=== PATIENT | female | born 1975 | race Hispanic/Latino ===

== ENCOUNTER → 2021-12-17 | Outpatient (CLI) | payer OTHER ==
[~2021-12-17] MED LIST: ALBUMIN (HUMAN) 25% 100 ML IV SCH; MIDO5TAB4 PO
[2021-12-17 13:47] LABS: HEMATOCRIT 28.3 % (36-48); MEAN CORPUSCULAR HEMOGLOBIN 32.4 pg (27.0-33.0); MEAN CORPUSCULAR HGB CONC 32.5 g/dL (32.0-36.0); MEAN CORPUSCULAR VOLUME 99.6 fL (79-99); PLATELET COUNT (AUTO) 162 K/uL (130-400); RED BLOOD CELL COUNT(AUTO) 2.84 MIL/uL (4.00-5.50); RED CELL DISTRIBUTION WIDTH 15.2 % (11.0-15.5); WHITE BLOOD COUNT (AUTO) 8.1 K/uL (4.8-10.8)
[2021-12-17 13:58] LABS: INR 1.36 (0.85-1.15); PROTHROMBIN TIME 14.6 SEC (9.6-11.6)
[2021-12-17 13:59] LABS: PARTIAL THROMBOPLASTIN TIME 34.1 SEC (26.3-35.5)
[2021-12-17 14:00] LABS: CREATININE 0.8 mg/dL (0.5-1.5); POTASSIUM 3.7 mmol/L (3.5-5.1); TOTAL PROTEIN, SERUM 7.8 g/dL (6.0-8.3)
[2021-12-17 14:56] LABS: BAND NEUTROPHILS % (MANUAL) 1 % (0-2); LYMPHOCYTES % (MANUAL) 12 % (22-44); MAN.DIFF COMMENT-IMPRESSION MANUAL DIFFERENTIAL; REACTIVE LYMPHOCYTES 5 % (0-0); SEGMENTED NEUTROPHILS % 82 % (40-70)
== END | disposition home or self-care (01) ==
LOC: RAH 13:20
PROVIDERS: ATTEND Internal Medicine Gastroenterology
DX: R18.8 Other ascites (principal); I60.4 Nontraumatic subarachnoid hemorrhage from basilar artery
CPT/HCPCS: 76705; 80053; 85025; 85610; 85730; P9046

== ENCOUNTER 2022-08-23 15:49 | Inpatient (IN) | payer OTHER ==
[~2022-08-23] VITALS: Ht 157.5 cm; Wt 68.9 kg
[~2022-08-23 15:49] MED LIST changes: -ALBUMIN (HUMAN) 25% 100 ML IV SCH; +FURO20TA4 PO; -MIDO5TAB4 PO; +Midodrine Hcl PO
[2022-08-23 16:45] LABS: BASOPHILS % (AUTO) 0.3 % (0.0-5.0); MEAN CORPUSCULAR HEMOGLOBIN 33.5 pg (27.0-33.0); MEAN CORPUSCULAR HGB CONC 36.5 g/dL (32.0-36.0); MEAN CORPUSCULAR VOLUME 91.6 fL (79-99); PLATELET COUNT (AUTO) 112 K/uL (130-400); RED BLOOD CELL COUNT(AUTO) 2.27 MIL/uL (4.00-5.50); RED CELL DISTRIBUTION WIDTH 13.7 % (11.0-15.5); WHITE BLOOD COUNT (AUTO) 14.8 K/uL (4.8-10.8)
[2022-08-23 16:49] LABS: CREATININE 0.5 mg/dL (0.5-1.5); POTASSIUM 3.4 mmol/L (3.5-5.1)
[2022-08-23 16:50] LABS: HEMATOCRIT 20.8 % (36-48)
[2022-08-23 16:53] LABS: TOTAL PROTEIN, SERUM 6.7 g/dL (6.0-8.3)
[2022-08-23] MEDS ORDERED: PANTOPRAZOLE 40 MG/VIAL IVP ONE (17:00)
[2022-08-23] MEDS ORDERED: 0.9%NACL 1000ML 1,000 ML IV ONE ×2 (17:00→19:30)
[2022-08-23] MEDS ORDERED: CEFTRIAXONE 1G VIAL IVPB ONE (17:00)
[2022-08-23] MEDS ORDERED: IOHEXOL-350 75 ML VIAL IV ONE (17:13)
[2022-08-23 17:21] LABS: APPEARANCE,URINE CLEAR (CLEAR); BILIRUBIN,URINE NEGATIVE (NEGATIVE); COLOR,URINE LIGHT-YELLOW (YELLOW); GLUCOSE, URINE (UA) NEGATIVE (NEGATIVE); KETONES,URINE 5 mg/dL (NEGATIVE); LEUKOCYTE ESTERASE ,URINE NEGATIVE Leu/uL (NEGATIVE); NITRATE,URINE NEGATIVE (NEGATIVE); OCCULT BLOOD,URINE SMALL (NEGATIVE); PROTEIN,URINE NEGATIVE (NEGATIVE); UROBILINOGEN,URINE 0.2 mg/dL (0.2-1.0)
[2022-08-23 17:25] LABS: BACTERIA,URINE RARE /HPF (None Seen); RBC,URINE 0-1 /HPF (0-1)
[2022-08-23 17:26] LABS: SQUAMOUS EPITHELIAL CELL,UR FEW /HPF (0-2)
[2022-08-23 17:27] LABS: AMPHET/METH SCREEN,URINE NEGATIVE (NEGATIVE); BARBITURATE SCREEN, URINE NEGATIVE (NEGATIVE); BENZODIAZEPINES SCREEN,URINE NEGATIVE (NEGATIVE); CANNABINOID SCREEN,URINE NEGATIVE (NEGATIVE); COCAINE SCREEN,URINE NEGATIVE (NEGATIVE); OPIATE SCREEN,URINE NEGATIVE (NEGATIVE); PHENCYCLIDINE SCREEN,URINE NEGATIVE (NEGATIVE)
[2022-08-23] MEDS ORDERED: LORAZEPAM 2 MG/ML 1 ML VIAL IVP ONE (17:30)
[2022-08-23 18:04] LABS: AMMONIA 64 umol/L (11-32)
[2022-08-23] MEDS ORDERED: ZIPRASIDONE MESYLATE 20 MG/VIAL IM SCH (19:30)
[2022-08-23] MEDS ORDERED: ONDANSETRON 4MG INJ ONE (19:32)
[2022-08-23] MEDS ORDERED: ROCURONIUM BROMIDE 10MG/1ML 5ML VL ONE (19:34)
[2022-08-23] MEDS ORDERED: ETOMIDATE 20MG VIAL ONE (19:34)
[2022-08-23] MEDS ORDERED: FENTANYL 2500MCG+NS 250ML 250 ML IV ONE (19:38)
[2022-08-23] MEDS: NOREPINEPHRIN 4MG/NS 250ML 250 ML IV SCH (19:40)
[2022-08-23] MEDS: ETOMIDATE 20MG VIAL IVP SCH (19:40)
[2022-08-23] MEDS: FENTANYL 2500MCG+NS 250ML 250 ML IV PRN (19:52)
[2022-08-23] MEDS ORDERED: FENTANYL CITRATE PF 50 MCG/1 ML 2ML VIAL IVP PRN (20:00)
[2022-08-23] MEDS ORDERED: ACETAMINOPHEN 325 MG TAB PO PRN (20:00)
[2022-08-23] MEDS ORDERED: 0.9%NACL 1000ML 1,000 ML IV SCH (20:00)
[2022-08-23] MEDS ORDERED: MIDAZOLAM 100MG-0.9% NS 100ML 50 ML IV PRN (20:00)
[2022-08-23] MEDS ORDERED: NOREPINEPHRIN 4MG/NS 250ML 250 ML IV PRN (20:00)
[2022-08-23] MEDS: ARTIFICAL TEARS SOL 15 ML OU SCH (20:00)
[2022-08-23 20:19] LABS: HEMATOCRIT 19.8 % (36-48)
[2022-08-23 20:22] LABS: INR 1.35 (0.85-1.15); PROTHROMBIN TIME 14.5 SEC (9.6-11.6)
[2022-08-23 20:23] LABS: PARTIAL THROMBOPLASTIN TIME 31.6 SEC (26.3-35.5)
[2022-08-23] MEDS ORDERED: M.V.I. IV [ADULT] 10 ML in 0.9%NACL 1000ML 1,000 ML IV SCH (20:30)
[2022-08-23] MEDS ORDERED: PHARMACY COMMUNICATION MISC SCH (20:30)
[2022-08-23] MEDS ORDERED: CALCIUM GLUC 1GM/10ML VIAL IVPB SCH (20:30)
[2022-08-23] MEDS: PANTOPRAZOLE 40MG INJ 80 MG in 0.9%NACL 100ML 100 ML IV SCH (20:51)
[2022-08-23] MEDS: OCTREOTIDE ACETATE 1,250 MCG in 0.9% NACL 250ML 250 ML IV SCH (20:52)
[2022-08-23] MEDS: PROPOFOL 1000 MG/100 ML 100 ML IV SCH (21:07)
[2022-08-23 21:13] LABS: AMPHET/METH SCREEN,URINE NEGATIVE (NEGATIVE); BARBITURATE SCREEN, URINE NEGATIVE (NEGATIVE); BENZODIAZEPINES SCREEN,URINE NEGATIVE (NEGATIVE); CANNABINOID SCREEN,URINE NEGATIVE (NEGATIVE); COCAINE SCREEN,URINE NEGATIVE (NEGATIVE); OPIATE SCREEN,URINE NEGATIVE (NEGATIVE); PHENCYCLIDINE SCREEN,URINE NEGATIVE (NEGATIVE)
[2022-08-23 21:20] LABS: ABG BASE EXCESS -11.3 mmol/L (-2.0-3.0); ABG HCO3 14.5 mmol/L (21.0-28.0); ABG OXYGEN SATURATION 98.9 % (95.0-99.0); ABG PCO2 32 mmHg (32-45)
[2022-08-23 22:56] VITALS: BP 87/50
[2022-08-23 23:00] VITALS: BP 90/52
[2022-08-23 23:15] VITALS: BP 94/53
[2022-08-23 23:30] VITALS: BP 94/55
[2022-08-23 23:45] VITALS: BP 93/54
[2022-08-23 23:56] LABS: ALBUMIN 2.3 g/dL (3.5-5.0); CREATININE 0.5 mg/dL (0.5-1.5); PHOSPHORUS 3.7 mg/dL (2.5-4.9); POTASSIUM 3.2 mmol/L (3.5-5.1); TOTAL PROTEIN, SERUM 5.2 g/dL (6.0-8.3)
[2022-08-24] VITALS (110 sets, daily range): BP systolic 83–126; BP diastolic 45–80
[2022-08-24] MEDS ORDERED: SODIUM BICARB 50MEQ 50ML VIAL IV STA (01:23)
[2022-08-24] MEDS ORDERED: POTASSIUM CHLORIDE 10MEQ/100ML 10 MEQ/100 ML ML IV ONE ×2 (01:30→04:30)
[2022-08-24] MEDS ORDERED: PHYTONADIONE 10 MG in 0.9%NACL 50ML 50 ML IVPB ONE (01:30)
[2022-08-24] MEDS: SODIUM BICARB 8.4% 50ML SYRING 150 MEQ in DEXTROSE 5%-WATER 1,000 ML IVP SCH ×2 (01:30→12:53)
[2022-08-24] MEDS ORDERED: CALCIUM GLUC 1GM/10ML VIAL IVPB SCH ×2 (01:30→04:30)
[2022-08-24 01:54] LABS: BASOPHILS % (AUTO) 0.1 % (0.0-5.0); HEMATOCRIT 22.5 % (36-48); LYMPHOCYTES % (AUTO) 8.5 % (21.0-51.0); MEAN CORPUSCULAR HEMOGLOBIN 32.9 pg (27.0-33.0); MEAN CORPUSCULAR HGB CONC 36.4 g/dL (32.0-36.0); MEAN CORPUSCULAR VOLUME 90.4 fL (79-99); MONOCYTES % (AUTO) 5.5 % (3.0-13.0); NEUTROPHILS % (AUTO) 85.3 % (40.0-77.0); PLATELET COUNT (AUTO) 59 K/uL (130-400); RED BLOOD CELL COUNT(AUTO) 2.49 MIL/uL (4.00-5.50); RED CELL DISTRIBUTION WIDTH 14.4 % (11.0-15.5); WHITE BLOOD COUNT (AUTO) 15.5 K/uL (4.8-10.8)
[2022-08-24] MEDS ORDERED: POTASSIUM CHLORIDE 10MEQ/100ML 100 ML IV SCH (02:00)
[2022-08-24 02:04] LABS: INR 1.26 (0.85-1.15); PROTHROMBIN TIME 13.6 SEC (9.6-11.6)
[2022-08-24 02:05] LABS: PARTIAL THROMBOPLASTIN TIME 33.9 SEC (26.3-35.5)
[2022-08-24 02:09] LABS: CREATININE 0.5 mg/dL (0.5-1.5); MAGNESIUM 1.6 mg/dL (1.80-2.40); PHOSPHORUS 3.1 mg/dL (2.5-4.9); POTASSIUM 3.2 mmol/L (3.5-5.1)
[2022-08-24] MEDS ORDERED: PHYTONADIONE 10 MG/1 ML AMP ONE (02:36)
[2022-08-24 03:32] LABS: ABG BASE EXCESS -2.8 mmol/L (-2.0-3.0); ABG HCO3 19.5 mmol/L (21.0-28.0); ABG OXYGEN SATURATION 99.4 % (95.0-99.0); ABG PCO2 28 mmHg (32-45)
[2022-08-24] MEDS: ARTIFICAL TEARS SOL 15 ML OU SCH ×4 (04:14→17:38)
[2022-08-24] MEDS ORDERED: DESMOPRESSIN IJ ONE (04:30)
[2022-08-24] MEDS ORDERED: 0.9%NACL 50ML IV SCH (04:30)
[2022-08-24] MEDS ORDERED: ZOSYN 3.375GM +NS 50ML IVPB SCH (04:30)
[2022-08-24] MEDS ORDERED: [UNRECOGNIZED DRUG - OTHER] IJ ONE (04:30)
[2022-08-24] MEDS ORDERED: MAGNESIUM 2GM PREMIX 50ML 50 ML IV SCH (04:30)
[2022-08-24] MEDS ORDERED: VANCOMYCIN PROTOCOL PER PHARMACY IV SCH (04:30)
[2022-08-24] MEDS ORDERED: VANCOMYCIN 1G/250ML KIT 250 ML IV ONE (04:30)
[2022-08-24] MEDS ORDERED: PANTOPRAZOLE 40 MG/VIAL ONE (04:46)
[2022-08-24] MEDS: PROPOFOL 1000 MG/100 ML 100 ML IV SCH ×4 (04:59→18:27)
[2022-08-24] MEDS: PANTOPRAZOLE 40MG INJ 80 MG in 0.9%NACL 100ML 100 ML IV SCH ×2 (05:01→14:12)
[2022-08-24] MEDS: INSULIN HUMULIN R 100 UNIT/ML 3ML SQ SCH ×4 (06:00→17:37)
[2022-08-24] MEDS: FENTANYL 2500MCG+NS 250ML 250 ML IV PRN ×2 (06:08→19:45)
[2022-08-24 06:56] LABS: HEMATOCRIT 21.7 % (36-48)
[2022-08-24 07:12] LABS: ALBUMIN 1.9 g/dL (3.5-5.0); BILIRUBIN,DIRECT 1.1 mg/dL (0.0-0.3); CREATININE 0.4 mg/dL (0.5-1.5); POTASSIUM 3.4 mmol/L (3.5-5.1); TOTAL PROTEIN, SERUM 4.2 g/dL (6.0-8.3)
[2022-08-24 07:28] LABS: ABG BASE EXCESS -0.3 mmol/L (-2.0-3.0); ABG HCO3 22.8 mmol/L (21.0-28.0); ABG OXYGEN SATURATION 98.6 % (95.0-99.0); ABG PCO2 33 mmHg (32-45)
[2022-08-24] MEDS ORDERED: [UNRECOGNIZED DRUG - OTHER] IJ SCH (08:00)
[2022-08-24] MEDS ORDERED: DESMOPRESSIN IJ SCH (08:00)
[2022-08-24] MEDS ORDERED: COMPOUND IV REFRIGERATED 1 EACH IVSOLN MISC PRN (08:30)
[2022-08-24 08:49] LABS: MAGNESIUM 1.4 mg/dL (1.80-2.40); POTASSIUM 3.4 mmol/L (3.5-5.1)
[2022-08-24] MEDS ORDERED: COMPOUND IV MISC 1 EACH IVSOLN MISC PRN (09:00)
[2022-08-24] MEDS ORDERED: CEFTRIAXONE 1G VIAL IV SCH (09:00)
[2022-08-24] MEDS: MEROPENEM 1 GM VIAL IVPB SCH ×2 (09:06→21:15)
[2022-08-24] MEDS: ALBUMIN (HUMAN) 25% 100 ML IV SCH ×4 (09:07→21:15)
[2022-08-24] MEDS: FOLIC ACID 5 MG/ML VIAL IV SCH (09:07)
[2022-08-24] MEDS: THIAMINE HCL 100 MG TABLET PO SCH (09:09)
[2022-08-24] MEDS: FOLIC ACID 1 MG, THIAMINE HCL 100 MG in 0.9%NACL 1000ML 1,000 ML IV SCH (09:09)
[2022-08-24] MEDS ORDERED: ERYTHROMYCIN LACTOBIONATE 250 MG in 0.9%NACL 100ML 100 ML IV SCH (09:31)
[2022-08-24] MEDS: EPOETIN ALFA-EPBX (NON-ESRD) 10,000 UNIT/ML VIAL SQ SCH (09:34)
[2022-08-24] MEDS: IRON SUCROSE COMPLEX 300 MG in 0.9% NACL 250ML 250 ML IV SCH (09:35)
[2022-08-24] MEDS ORDERED: PHARMACY COMMUNICATION MISC SCH (12:00)
[2022-08-24] MEDS ORDERED: SIMETHICONE 40 MG/0.6 ML ML PO SCH (12:00)
[2022-08-24] MEDS: POTASSIUM CHLORIDE 10MEQ/100ML 100 ML IV PRN ×4 (12:53→22:49)
[2022-08-24] MEDS: METRONIDAZOLE 500MG/100ML BAG 100 ML IVPB SCH ×2 (13:22→21:39)
[2022-08-24] MEDS ORDERED: OSELTAMIVIR PHOSPHATE 75 MG CAP NG ONE (15:00)
[2022-08-24] MEDS: OSELTAMIVIR PHOSPHATE 75 MG CAP PO SCH ×2 (15:18→21:19)
[2022-08-24 18:18] LABS: MAGNESIUM 2.1 mg/dL (1.80-2.40)
[2022-08-24] MEDS: ETOMIDATE 20MG VIAL IVP SCH (18:39)
[2022-08-24] MEDS: 0.9%NACL 10ML VIAL IV SCH (21:00)
[2022-08-24] MEDS: VANCOMYCIN 1G/250ML KIT 250 ML IV SCH (21:18)
[2022-08-24] MEDS: LACTULOSE 20 GM/30 ML UDCUP PO SCH (21:19)
[2022-08-25] VITALS (79 sets, daily range): BP systolic 86–144; BP diastolic 51–87
[2022-08-25] MEDS: ALBUMIN (HUMAN) 25% 100 ML IV SCH ×6 (00:13→20:33)
[2022-08-25] MEDS: ARTIFICAL TEARS SOL 15 ML OU SCH ×4 (00:14→17:27)
[2022-08-25] MEDS: SODIUM BICARB 8.4% 50ML SYRING 150 MEQ in DEXTROSE 5%-WATER 1,000 ML IVP SCH (00:14)
[2022-08-25] MEDS: PANTOPRAZOLE 40MG INJ 80 MG in 0.9%NACL 100ML 100 ML IV SCH ×3 (00:17→18:58)
[2022-08-25] MEDS: PROPOFOL 1000 MG/100 ML 100 ML IV SCH ×3 (00:56→21:43)
[2022-08-25] MEDS: NOREPINEPHRIN 4MG/NS 250ML 250 ML IV SCH (01:00)
[2022-08-25 03:09] LABS: ABG BASE EXCESS 6.7 mmol/L (-2.0-3.0); ABG HCO3 29.5 mmol/L (21.0-28.0); ABG OXYGEN SATURATION 96.2 % (95.0-99.0); ABG PCO2 36 mmHg (32-45)
[2022-08-25 04:09] LABS: BASOPHILS % (AUTO) 0.1 % (0.0-5.0); EOSINOPHILS % (AUTO) 0.1 % (0.0-8.0); LYMPHOCYTES % (AUTO) 7.8 % (21.0-51.0); MEAN CORPUSCULAR HGB CONC 36.2 g/dL (32.0-36.0); MEAN CORPUSCULAR VOLUME 91.1 fL (79-99); MONOCYTES % (AUTO) 5.5 % (3.0-13.0); NEUTROPHILS % (AUTO) 86.1 % (40.0-77.0); PLATELET COUNT (AUTO) 33 K/uL (130-400); RED BLOOD CELL COUNT(AUTO) 1.91 MIL/uL (4.00-5.50); RED CELL DISTRIBUTION WIDTH 15.4 % (11.0-15.5); WHITE BLOOD COUNT (AUTO) 9.1 K/uL (4.8-10.8)
[2022-08-25 04:16] LABS: HEMATOCRIT 17.4 % (36-48)
[2022-08-25 04:28] LABS: CREATININE 0.4 mg/dL (0.5-1.5)
[2022-08-25 04:42] LABS: POTASSIUM 2.6 mmol/L (3.5-5.1)
[2022-08-25] MEDS: POTASSIUM CHLORIDE 10MEQ/100ML 100 ML IV PRN ×2 (04:50→05:56)
[2022-08-25] MEDS ORDERED: MAGNESIUM 2GM PREMIX 50ML 50 ML IV PRN (05:30)
[2022-08-25] MEDS: INSULIN HUMULIN R 100 UNIT/ML 3ML SQ SCH ×4 (05:44→17:25)
[2022-08-25] MEDS: METRONIDAZOLE 500MG/100ML BAG 100 ML IVPB SCH ×3 (05:47→21:38)
[2022-08-25] MEDS: FENTANYL 2500MCG+NS 250ML 250 ML IV PRN (06:29)
[2022-08-25] MEDS: POTASSIUM CHLORIDE 20MEQ/100ML 100 ML IV PRN ×6 (07:40→15:28)
[2022-08-25] MEDS: EPOETIN ALFA-EPBX (NON-ESRD) 10,000 UNIT/ML VIAL SQ SCH (08:37)
[2022-08-25] MEDS: VANCOMYCIN 1G/250ML KIT 250 ML IV SCH ×2 (08:37→22:51)
[2022-08-25] MEDS: FOLIC ACID 5 MG/ML VIAL IV SCH (08:37)
[2022-08-25] MEDS: MEROPENEM 1 GM VIAL IVPB SCH ×2 (08:37→20:33)
[2022-08-25] MEDS: LACTULOSE 20 GM/30 ML UDCUP PO SCH ×2 (08:37→20:33)
[2022-08-25] MEDS: OSELTAMIVIR PHOSPHATE 75 MG CAP PO SCH ×2 (08:38→20:33)
[2022-08-25] MEDS: THIAMINE HCL 100 MG TABLET PO SCH (08:38)
[2022-08-25] MEDS: 0.9%NACL 10ML VIAL IV SCH ×2 (08:38→21:00)
[2022-08-25] MEDS: IRON SUCROSE COMPLEX 300 MG in 0.9% NACL 250ML 250 ML IV SCH (08:38)
[2022-08-25] MEDS: FOLIC ACID 1 MG, THIAMINE HCL 100 MG in 0.9%NACL 1000ML 1,000 ML IV SCH (09:25)
[2022-08-25 10:57] LABS: POTASSIUM 3.2 mmol/L (3.5-5.1)
[2022-08-25] MEDS ORDERED: FUROSEMIDE 20MG VIAL IV SCH (11:00)
[2022-08-25] MEDS: DEXMEDETOMIDINE 400MCG/NS100ML IV SCH ×2 (11:39→19:22)
[2022-08-25] MEDS: IPRATROPIUM 0.5 MG/2.5 ML INH IH SCH ×4 (14:30→23:07)
[2022-08-25] MEDS: ACETYLCYSTEINE 10% 100MG/ML 4ML VIAL IH SCH ×2 (14:30→23:07)
[2022-08-25 18:39] LABS: POTASSIUM 4.2 mmol/L (3.5-5.1)
[2022-08-25] MEDS: OCTREOTIDE ACETATE 1,250 MCG in 0.9% NACL 250ML 250 ML IV SCH (18:59)
[2022-08-25 20:59] LABS: ABG BASE EXCESS 1.8 mmol/L (-2.0-3.0); ABG OXYGEN SATURATION 80.8 % (95.0-99.0); ABG PCO2 39 mmHg (32-45)
[2022-08-25] MEDS: FUROSEMIDE 20MG VIAL IV SCH (22:50)
[2022-08-26] VITALS (46 sets, daily range): BP systolic 80–142; BP diastolic 46–84
[2022-08-26] MEDS: ALBUMIN (HUMAN) 25% 100 ML IV SCH ×2 (00:07→03:14)
[2022-08-26] MEDS: ARTIFICAL TEARS SOL 15 ML OU SCH ×5 (00:13→23:40)
[2022-08-26] MEDS: DEXMEDETOMIDINE 400MCG/NS100ML IV SCH ×3 (01:23→15:30)
[2022-08-26] MEDS: IPRATROPIUM 0.5 MG/2.5 ML INH IH SCH ×6 (02:34→21:35)
[2022-08-26] MEDS: PANTOPRAZOLE 40MG INJ 80 MG in 0.9%NACL 100ML 100 ML IV SCH ×2 (04:52→19:57)
[2022-08-26 05:03] LABS: BASOPHILS % (AUTO) 0.1 % (0.0-5.0); EOSINOPHILS % (AUTO) 0.4 % (0.0-8.0); LYMPHOCYTES % (AUTO) 9.1 % (21.0-51.0); MEAN CORPUSCULAR HGB CONC 34.9 g/dL (32.0-36.0); MEAN CORPUSCULAR VOLUME 94.5 fL (79-99); MONOCYTES % (AUTO) 3.9 % (3.0-13.0); NEUTROPHILS % (AUTO) 85.8 % (40.0-77.0); NUCLEATED RED BLOOD CELLS 0.4 % (0.0-0.19); PLATELET COUNT (AUTO) 32 K/uL (130-400); RED BLOOD CELL COUNT(AUTO) 1.82 MIL/uL (4.00-5.50); WHITE BLOOD COUNT (AUTO) 7.3 K/uL (4.8-10.8)
[2022-08-26 05:07] LABS: CREATININE 0.5 mg/dL (0.5-1.5); MAGNESIUM 1.7 mg/dL (1.80-2.40); POTASSIUM 3.3 mmol/L (3.5-5.1)
[2022-08-26 05:11] LABS: HEMATOCRIT 17.2 % (36-48)
[2022-08-26 05:17] LABS: INR 1.54 (0.85-1.15); PROTHROMBIN TIME 16.4 SEC (9.6-11.6)
[2022-08-26 05:19] LABS: PARTIAL THROMBOPLASTIN TIME 69.1 SEC (26.3-35.5)
[2022-08-26] MEDS: METRONIDAZOLE 500MG/100ML BAG 100 ML IVPB SCH ×3 (05:23→23:39)
[2022-08-26] MEDS: POTASSIUM CHLORIDE 20MEQ/100ML 100 ML IV PRN ×5 (05:27→19:57)
[2022-08-26] MEDS: INSULIN HUMULIN R 100 UNIT/ML 3ML SQ SCH ×5 (05:28→22:48)
[2022-08-26] MEDS: FUROSEMIDE 20MG VIAL IV SCH ×3 (05:44→21:47)
[2022-08-26] MEDS: ACETYLCYSTEINE 10% 100MG/ML 4ML VIAL IH SCH ×2 (07:02→19:19)
[2022-08-26] MEDS: EPOETIN ALFA-EPBX (NON-ESRD) 10,000 UNIT/ML VIAL SQ SCH (08:14)
[2022-08-26] MEDS: MEROPENEM 1 GM VIAL IVPB SCH ×2 (08:14→19:57)
[2022-08-26] MEDS: FOLIC ACID 5 MG/ML VIAL IV SCH (08:14)
[2022-08-26] MEDS: LACTULOSE 20 GM/30 ML UDCUP PO SCH ×2 (08:15→20:39)
[2022-08-26] MEDS: VANCOMYCIN 1G/250ML KIT 250 ML IV SCH ×2 (08:15→21:45)
[2022-08-26] MEDS: THIAMINE HCL 100 MG TABLET PO SCH (08:15)
[2022-08-26] MEDS: OSELTAMIVIR PHOSPHATE 75 MG CAP PO SCH ×2 (08:15→20:39)
[2022-08-26] MEDS: IRON SUCROSE COMPLEX 300 MG in 0.9% NACL 250ML 250 ML IV SCH ×2 (08:16→11:44)
[2022-08-26] MEDS: 0.9%NACL 10ML VIAL IV SCH ×2 (08:17→19:58)
[2022-08-26] MEDS: FOLIC ACID 1 MG, THIAMINE HCL 100 MG in 0.9%NACL 1000ML 1,000 ML IV SCH (09:41)
[2022-08-26] MEDS: PROPOFOL 1000 MG/100 ML 100 ML IV SCH ×2 (13:28→22:11)
[2022-08-27] VITALS (52 sets, daily range): BP systolic 89–164; BP diastolic 45–92
[2022-08-27] MEDS: DEXMEDETOMIDINE 400MCG/NS100ML IV SCH ×4 (02:43→20:43)
[2022-08-27] MEDS: IPRATROPIUM 0.5 MG/2.5 ML INH IH SCH ×3 (03:32→19:10)
[2022-08-27 04:29] LABS: CREATININE 0.6 mg/dL (0.5-1.5); POTASSIUM 4.3 mmol/L (3.5-5.1)
[2022-08-27] MEDS: PROPOFOL 1000 MG/100 ML 100 ML IV SCH ×2 (04:37→20:14)
[2022-08-27] MEDS: PANTOPRAZOLE 40MG INJ 80 MG in 0.9%NACL 100ML 100 ML IV SCH ×3 (04:41→22:59)
[2022-08-27] MEDS: METRONIDAZOLE 500MG/100ML BAG 100 ML IVPB SCH ×3 (05:40→21:51)
[2022-08-27] MEDS: FUROSEMIDE 20MG VIAL IV SCH ×3 (05:40→21:51)
[2022-08-27] MEDS: INSULIN HUMULIN R 100 UNIT/ML 3ML SQ SCH ×3 (05:52→18:00)
[2022-08-27] MEDS: ARTIFICAL TEARS SOL 15 ML OU SCH ×3 (05:53→20:07)
[2022-08-27] MEDS: ACETYLCYSTEINE 10% 100MG/ML 4ML VIAL IH SCH ×2 (06:47→19:10)
[2022-08-27] MEDS: LACTULOSE 20 GM/30 ML UDCUP PO SCH ×2 (08:42→20:16)
[2022-08-27] MEDS: THIAMINE HCL 100 MG/ML 2ML VIAL IVP SCH (08:42)
[2022-08-27] MEDS: OSELTAMIVIR PHOSPHATE 75 MG CAP PO SCH ×2 (08:42→20:16)
[2022-08-27] MEDS: MEROPENEM 1 GM VIAL IVPB SCH ×2 (08:42→20:15)
[2022-08-27] MEDS: 0.9%NACL 10ML VIAL IV SCH ×2 (08:44→20:16)
[2022-08-27] MEDS: VANCOMYCIN 1G/250ML KIT 250 ML IV SCH (09:00)
[2022-08-27] MEDS ORDERED: IPRATROPIUM 0.5 MG/2.5 ML INH IH ONE (10:37)
[2022-08-27] MEDS: EPOETIN ALFA-EPBX (NON-ESRD) 10,000 UNIT/ML VIAL SQ SCH (10:39)
[2022-08-27] MEDS: FOLIC ACID 5 MG/ML VIAL IV SCH (10:39)
[2022-08-27] MEDS ORDERED: MORPHINE 2 MG SYG ONE (13:16)
[2022-08-27] MEDS ORDERED: MORPHINE 2 MG SYG IVP SCH (13:30)
[2022-08-27 17:04] LABS: BODY FLUID RBC 695 /cu. mm.; BODY FLUID WBC 60 /cu. mm.
[2022-08-27 17:14] LABS: APPEARANCE BODY FLUID CLEAR (CLEAR); COLOR,BODY FLUID YELLOW (LT YELLOW); SPECIMENTYPE,BODY FLUID PLEURAL; TOTAL VOLUME,BODY FLUID 24 mL
[2022-08-27 18:59] LABS: BF LYMPHOCYTE 24 %; BF MONOCYTE 14 %; BF OTHER CELLS 8
[2022-08-27] MEDS: OCTREOTIDE ACETATE 1,250 MCG in 0.9% NACL 250ML 250 ML IV SCH (20:26)
[2022-08-28] VITALS (37 sets, daily range): BP systolic 89–157; BP diastolic 43–91
[2022-08-28] MEDS: ARTIFICAL TEARS SOL 15 ML OU SCH ×5 (00:32→23:32)
[2022-08-28] MEDS: IPRATROPIUM 0.5 MG/2.5 ML INH IH SCH ×4 (00:37→19:55)
[2022-08-28] MEDS: DEXMEDETOMIDINE 400MCG/NS100ML IV SCH ×4 (02:41→22:25)
[2022-08-28] MEDS: PROPOFOL 1000 MG/100 ML 100 ML IV SCH ×3 (02:41→20:15)
[2022-08-28] MEDS: INSULIN HUMULIN R 100 UNIT/ML 3ML SQ SCH ×4 (06:00→18:00)
[2022-08-28] MEDS: ACETYLCYSTEINE 10% 100MG/ML 4ML VIAL IH SCH ×2 (06:47→19:55)
[2022-08-28 07:27] LABS: ALBUMIN 4.4 g/dL (3.5-5.0); CREATININE 0.6 mg/dL (0.5-1.5); TOTAL PROTEIN, SERUM 6.1 g/dL (6.0-8.3)
[2022-08-28] MEDS: METRONIDAZOLE 500MG/100ML BAG 100 ML IVPB SCH ×3 (07:27→21:08)
[2022-08-28] MEDS: FUROSEMIDE 20MG VIAL IV SCH ×3 (07:27→21:09)
[2022-08-28 07:32] LABS: POTASSIUM 2.6 mmol/L (3.5-5.1)
[2022-08-28] MEDS: POTASSIUM CHLORIDE 20MEQ/100ML 100 ML IV PRN ×4 (07:35→15:31)
[2022-08-28] MEDS: MEROPENEM 1 GM VIAL IVPB SCH ×2 (09:02→21:09)
[2022-08-28] MEDS: LACTULOSE 20 GM/30 ML UDCUP PO SCH ×2 (09:09→21:08)
[2022-08-28] MEDS: THIAMINE HCL 100 MG/ML 2ML VIAL IVP SCH (09:09)
[2022-08-28] MEDS: OSELTAMIVIR PHOSPHATE 75 MG CAP PO SCH ×2 (09:09→21:09)
[2022-08-28] MEDS: IRON SUCROSE COMPLEX 300 MG in 0.9% NACL 250ML 250 ML IV SCH (09:09)
[2022-08-28] MEDS: EPOETIN ALFA-EPBX (NON-ESRD) 10,000 UNIT/ML VIAL SQ SCH (09:12)
[2022-08-28] MEDS: 0.9%NACL 10ML VIAL IV SCH ×2 (10:09→21:07)
[2022-08-28] MEDS: FOLIC ACID 5 MG/ML VIAL IV SCH (10:54)
[2022-08-28] MEDS: VANCOMYCIN 1G/250ML KIT 250 ML IV SCH (21:08)
[2022-08-29] VITALS (40 sets, daily range): BP systolic 96–150; BP diastolic 44–90
[2022-08-29] MEDS: IPRATROPIUM 0.5 MG/2.5 ML INH IH SCH ×4 (00:11→20:27)
[2022-08-29] MEDS: PROPOFOL 1000 MG/100 ML 100 ML IV SCH (03:58)
[2022-08-29] MEDS: DEXMEDETOMIDINE 400MCG/NS100ML IV SCH ×2 (03:58→11:37)
[2022-08-29 04:37] LABS: HEMATOCRIT 24.7 % (36-48)
[2022-08-29] MEDS: METRONIDAZOLE 500MG/100ML BAG 100 ML IVPB SCH ×3 (05:14→20:48)
[2022-08-29] MEDS: ARTIFICAL TEARS SOL 15 ML OU SCH ×3 (05:15→17:52)
[2022-08-29] MEDS: FUROSEMIDE 20MG VIAL IV SCH ×3 (05:15→20:35)
[2022-08-29] MEDS: INSULIN HUMULIN R 100 UNIT/ML 3ML SQ SCH ×4 (06:00→17:52)
[2022-08-29 07:02] LABS: HEMATOCRIT 25.8 % (36-48); MEAN CORPUSCULAR HEMOGLOBIN 34.3 pg (27.0-33.0); MEAN CORPUSCULAR HGB CONC 33.3 g/dL (32.0-36.0); MEAN CORPUSCULAR VOLUME 102.8 fL (79-99); NUCLEATED RED BLOOD CELLS 1.2 % (0.0-0.19); RED BLOOD CELL COUNT(AUTO) 2.51 MIL/uL (4.00-5.50); RED CELL DISTRIBUTION WIDTH 21.8 % (11.0-15.5); WHITE BLOOD COUNT (AUTO) 7.5 K/uL (4.8-10.8)
[2022-08-29] MEDS: ACETYLCYSTEINE 10% 100MG/ML 4ML VIAL IH SCH ×2 (07:04→20:27)
[2022-08-29] MEDS ORDERED: PHARMACY COMMUNICATION MISC PRN (09:00)
[2022-08-29] MEDS: MEROPENEM 1 GM VIAL IVPB SCH ×2 (09:09→20:29)
[2022-08-29] MEDS: FOLIC ACID 5 MG/ML VIAL IV SCH (09:09)
[2022-08-29] MEDS: VANCOMYCIN 1G/250ML KIT 250 ML IV SCH ×2 (09:10→20:34)
[2022-08-29] MEDS: THIAMINE HCL 100 MG/ML 2ML VIAL IVP SCH (09:12)
[2022-08-29] MEDS: OSELTAMIVIR PHOSPHATE 75 MG CAP PO SCH (09:12)
[2022-08-29] MEDS: LACTULOSE 20 GM/30 ML UDCUP PO SCH ×2 (09:12→20:34)
[2022-08-29] MEDS: EPOETIN ALFA-EPBX (NON-ESRD) 10,000 UNIT/ML VIAL SQ SCH (09:12)
[2022-08-29] MEDS: IRON SUCROSE COMPLEX 300 MG in 0.9% NACL 250ML 250 ML IV SCH (09:13)
[2022-08-29] MEDS: 0.9%NACL 10ML VIAL IV SCH ×2 (09:14→20:39)
[2022-08-29 09:45] LABS: ALBUMIN 4.4 g/dL (3.5-5.0); CREATININE 0.5 mg/dL (0.5-1.5); MAGNESIUM 1.3 mg/dL (1.80-2.40); PHOSPHORUS 1.7 mg/dL (2.5-4.9); TOTAL PROTEIN, SERUM 6.2 g/dL (6.0-8.3)
[2022-08-29 09:47] LABS: POTASSIUM 2.9 mmol/L (3.5-5.1)
[2022-08-29] MEDS: LORAZEPAM 2 MG/ML 1 ML VIAL IVP PRN ×2 (09:56→20:34)
[2022-08-29] MEDS: POTASSIUM CHLORIDE 20MEQ/100ML 100 ML IV PRN ×2 (14:00→20:30)
[2022-08-29] MEDS: CHLORDIAZEPOXIDE HCL 25 MG CAP PO PRN (23:34)
[2022-08-30] VITALS (45 sets, daily range): BP systolic 86–168; BP diastolic 45–99
[2022-08-30] MEDS: ARTIFICAL TEARS SOL 15 ML OU SCH ×4 (01:09→18:07)
[2022-08-30] MEDS: LORAZEPAM 2 MG/ML 1 ML VIAL IVP PRN ×3 (01:14→18:20)
[2022-08-30 04:03] LABS: HEMATOCRIT 27.1 % (36-48); MEAN CORPUSCULAR HEMOGLOBIN 34.6 pg (27.0-33.0); MEAN CORPUSCULAR HGB CONC 32.8 g/dL (32.0-36.0); MEAN CORPUSCULAR VOLUME 105.4 fL (79-99); RED BLOOD CELL COUNT(AUTO) 2.57 MIL/uL (4.00-5.50); RED CELL DISTRIBUTION WIDTH 23.9 % (11.0-15.5); WHITE BLOOD COUNT (AUTO) 9.9 K/uL (4.8-10.8)
[2022-08-30 04:17] LABS: CREATININE 0.6 mg/dL (0.5-1.5); MAGNESIUM 1.4 mg/dL (1.80-2.40); PHOSPHORUS 1.5 mg/dL (2.5-4.9); POTASSIUM 3.9 mmol/L (3.5-5.1)
[2022-08-30] MEDS: INSULIN HUMULIN R 100 UNIT/ML 3ML SQ SCH ×4 (06:00→18:00)
[2022-08-30] MEDS: METRONIDAZOLE 500MG/100ML BAG 100 ML IVPB SCH ×3 (06:12→21:08)
[2022-08-30] MEDS: FUROSEMIDE 20MG VIAL IV SCH ×3 (06:12→21:09)
[2022-08-30] MEDS: ACETYLCYSTEINE 10% 100MG/ML 4ML VIAL IH SCH (06:44)
[2022-08-30] MEDS: IPRATROPIUM 0.5 MG/2.5 ML INH IH SCH ×4 (06:44→23:30)
[2022-08-30] MEDS: DEXMEDETOMIDINE 400MCG/NS100ML IV SCH ×2 (07:54→21:08)
[2022-08-30] MEDS: LACTULOSE 20 GM/30 ML UDCUP PO SCH ×2 (09:00→21:08)
[2022-08-30] MEDS: MEROPENEM 1 GM VIAL IVPB SCH ×2 (09:04→21:09)
[2022-08-30] MEDS: 0.9%NACL 10ML VIAL IV SCH ×2 (09:05→21:10)
[2022-08-30] MEDS: IRON SUCROSE COMPLEX 300 MG in 0.9% NACL 250ML 250 ML IV SCH (09:05)
[2022-08-30] MEDS: THIAMINE HCL 100 MG/ML 2ML VIAL IVP SCH (09:05)
[2022-08-30] MEDS: EPOETIN ALFA-EPBX (NON-ESRD) 10,000 UNIT/ML VIAL SQ SCH (09:06)
[2022-08-30] MEDS: FOLIC ACID 5 MG/ML VIAL IV SCH (09:11)
[2022-08-30] MEDS: CHLORDIAZEPOXIDE HCL 25 MG CAP PO PRN (10:05)
[2022-08-30] MEDS: VANCOMYCIN 1G/250ML KIT 250 ML IV SCH ×2 (10:23→21:09)
[2022-08-30] MEDS: MAGNESIUM 2GM PREMIX 50ML 50 ML IV PRN (12:22)
[2022-08-31] VITALS (49 sets, daily range): BP systolic 73–120; BP diastolic 40–79
[2022-08-31] MEDS: ARTIFICAL TEARS SOL 15 ML OU SCH ×5 (00:30→23:48)
[2022-08-31 05:19] LABS: HEMATOCRIT 28.8 % (36-48); MEAN CORPUSCULAR HEMOGLOBIN 33.9 pg (27.0-33.0); MEAN CORPUSCULAR HGB CONC 31.9 g/dL (32.0-36.0); MEAN CORPUSCULAR VOLUME 106.3 fL (79-99); NUCLEATED RED BLOOD CELLS 0.9 % (0.0-0.19); PLATELET COUNT (AUTO) 61 K/uL (130-400); RED BLOOD CELL COUNT(AUTO) 2.71 MIL/uL (4.00-5.50); RED CELL DISTRIBUTION WIDTH 25.3 % (11.0-15.5); WHITE BLOOD COUNT (AUTO) 5.6 K/uL (4.8-10.8)
[2022-08-31 05:29] LABS: CREATININE 0.7 mg/dL (0.5-1.5); MAGNESIUM 2.4 mg/dL (1.80-2.40)
[2022-08-31] MEDS: METRONIDAZOLE 500MG/100ML BAG 100 ML IVPB SCH ×3 (05:38→22:13)
[2022-08-31] MEDS: POTASSIUM CHLORIDE 20MEQ/100ML 100 ML IV PRN ×4 (05:38→21:23)
[2022-08-31] MEDS: FUROSEMIDE 20MG VIAL IV SCH ×3 (05:39→22:14)
[2022-08-31] MEDS: DEXMEDETOMIDINE 400MCG/NS100ML IV SCH (05:41)
[2022-08-31] MEDS: INSULIN HUMULIN R 100 UNIT/ML 3ML SQ SCH ×5 (05:51→23:47)
[2022-08-31 06:00] LABS: PLATELET MORPHOLOGY COMMENT DECREASED
[2022-08-31] MEDS: IPRATROPIUM 0.5 MG/2.5 ML INH IH SCH ×2 (07:05→11:14)
[2022-08-31] MEDS: EPOETIN ALFA-EPBX (NON-ESRD) 10,000 UNIT/ML VIAL SQ SCH (08:12)
[2022-08-31] MEDS: LACTULOSE 20 GM/30 ML UDCUP PO SCH ×2 (08:13→20:28)
[2022-08-31] MEDS: THIAMINE HCL 100 MG/ML 2ML VIAL IVP SCH (08:15)
[2022-08-31] MEDS: MEROPENEM 1 GM VIAL IVPB SCH ×2 (08:15→20:30)
[2022-08-31] MEDS: VANCOMYCIN 1G/250ML KIT 250 ML IV SCH (08:15)
[2022-08-31] MEDS: 0.9%NACL 10ML VIAL IV SCH ×2 (08:15→20:37)
[2022-08-31] MEDS: FOLIC ACID 5 MG/ML VIAL IV SCH (08:29)
[2022-08-31] MEDS: IRON SUCROSE COMPLEX 300 MG in 0.9% NACL 250ML 250 ML IV SCH (10:28)
[2022-08-31] MEDS: CHLORDIAZEPOXIDE HCL 25 MG CAP PO SCH ×2 (18:00→23:47)
[2022-08-31] MEDS: PANTOPRAZOLE 40 MG/VIAL IVP SCH (20:29)
[2022-09-01] VITALS (20 sets, daily range): BP systolic 86–125; BP diastolic 46–75
[2022-09-01] MEDS: IPRATROPIUM 0.5 MG/2.5 ML INH IH SCH ×5 (00:53→20:02)
[2022-09-01 02:07] LABS: MAGNESIUM 1.6 mg/dL (1.80-2.40)
[2022-09-01] MEDS: MAGNESIUM 2GM PREMIX 50ML 50 ML IV PRN (02:25)
[2022-09-01] MEDS: POTASSIUM CHLORIDE 20MEQ/100ML 100 ML IV PRN (02:26)
[2022-09-01] MEDS ORDERED: 1/2NS+20MEQ KCL/1000ML 1,000 ML IV SCH (03:30)
[2022-09-01] MEDS ORDERED: POTASSIUM CHLORIDE 10% ELIXIR 20 MEQ/15 ML UDCUP PO PRN (03:30)
[2022-09-01] MEDS ORDERED: VANCOMYCIN 750MG VIAL IVPB SCH (06:00)
[2022-09-01] MEDS: CHLORDIAZEPOXIDE HCL 25 MG CAP PO SCH ×4 (06:00→22:51)
[2022-09-01] MEDS: INSULIN HUMULIN R 100 UNIT/ML 3ML SQ SCH ×4 (06:00→21:34)
[2022-09-01 06:30] LABS: BASOPHILS % (AUTO) 0.4 % (0.0-5.0); EOSINOPHILS % (AUTO) 0.3 % (0.0-8.0); HEMATOCRIT 32.2 % (36-48); LYMPHOCYTES % (AUTO) 20.8 % (21.0-51.0); MEAN CORPUSCULAR HEMOGLOBIN 34.8 pg (27.0-33.0); MEAN CORPUSCULAR HGB CONC 31.7 g/dL (32.0-36.0); MEAN CORPUSCULAR VOLUME 109.9 fL (79-99); MONOCYTES % (AUTO) 9.3 % (3.0-13.0); NEUTROPHILS % (AUTO) 68.3 % (40.0-77.0); PLATELET COUNT (AUTO) 62 K/uL (130-400); RED BLOOD CELL COUNT(AUTO) 2.93 MIL/uL (4.00-5.50); RED CELL DISTRIBUTION WIDTH 25.3 % (11.0-15.5); WHITE BLOOD COUNT (AUTO) 7.4 K/uL (4.8-10.8)
[2022-09-01 06:31] LABS: NUCLEATED RED BLOOD CELLS 1.9 % (0.0-0.19)
[2022-09-01] MEDS: FUROSEMIDE 20MG VIAL IV SCH ×3 (06:48→21:27)
[2022-09-01] MEDS: METRONIDAZOLE 500MG/100ML BAG 100 ML IVPB SCH ×3 (06:48→22:51)
[2022-09-01] MEDS: ARTIFICAL TEARS SOL 15 ML OU SCH ×4 (06:56→22:56)
[2022-09-01 07:01] LABS: ALBUMIN 5.1 g/dL (3.5-5.0); CREATININE 0.7 mg/dL (0.5-1.5); MAGNESIUM 2.2 mg/dL (1.80-2.40); POTASSIUM 3.5 mmol/L (3.5-5.1); TOTAL PROTEIN, SERUM 7.8 g/dL (6.0-8.3)
[2022-09-01] MEDS: 0.9%NACL 10ML VIAL IV SCH ×2 (08:31→21:27)
[2022-09-01] MEDS: PANTOPRAZOLE 40 MG/VIAL IVP SCH ×2 (08:31→21:27)
[2022-09-01] MEDS: LACTULOSE 20 GM/30 ML UDCUP PO SCH ×2 (08:31→21:26)
[2022-09-01] MEDS: MEROPENEM 1 GM VIAL IVPB SCH ×2 (08:31→21:27)
[2022-09-01] MEDS: EPOETIN ALFA-EPBX (NON-ESRD) 10,000 UNIT/ML VIAL SQ SCH (08:32)
[2022-09-01] MEDS: IRON SUCROSE COMPLEX 300 MG in 0.9% NACL 250ML 250 ML IV SCH (12:52)
[2022-09-02] MEDS: IPRATROPIUM 0.5 MG/2.5 ML INH IH SCH ×4 (00:19→23:13)
[2022-09-02 03:41] VITALS: BP 104/67
[2022-09-02 05:23] LABS: BASOPHILS % (AUTO) 0.4 % (0.0-5.0); EOSINOPHILS % (AUTO) 0.6 % (0.0-8.0); HEMATOCRIT 32.1 % (36-48); LYMPHOCYTES % (AUTO) 21.5 % (21.0-51.0); MEAN CORPUSCULAR HEMOGLOBIN 35.1 pg (27.0-33.0); MEAN CORPUSCULAR HGB CONC 32.4 g/dL (32.0-36.0); MEAN CORPUSCULAR VOLUME 108.4 fL (79-99); MONOCYTES % (AUTO) 12.3 % (3.0-13.0); NEUTROPHILS % (AUTO) 64.4 % (40.0-77.0); NUCLEATED RED BLOOD CELLS 2.1 % (0.0-0.19); PLATELET COUNT (AUTO) 68 K/uL (130-400); RED BLOOD CELL COUNT(AUTO) 2.96 MIL/uL (4.00-5.50); RED CELL DISTRIBUTION WIDTH 24.7 % (11.0-15.5); WHITE BLOOD COUNT (AUTO) 4.8 K/uL (4.8-10.8)
[2022-09-02 05:46] LABS: CREATININE 0.7 mg/dL (0.5-1.5)
[2022-09-02 05:53] LABS: POTASSIUM 2.8 mmol/L (3.5-5.1)
[2022-09-02] MEDS: INSULIN HUMULIN R 100 UNIT/ML 3ML SQ SCH ×3 (06:00→18:00)
[2022-09-02] MEDS: CHLORDIAZEPOXIDE HCL 25 MG CAP PO SCH ×3 (06:14→18:03)
[2022-09-02] MEDS: KCL 20 MEQ ERTAB PO PRN ×4 (06:17→19:00)
[2022-09-02] MEDS: METRONIDAZOLE 500MG/100ML BAG 100 ML IVPB SCH ×3 (06:17→21:36)
[2022-09-02] MEDS: FUROSEMIDE 20MG VIAL IV SCH ×3 (06:18→21:36)
[2022-09-02] MEDS: ARTIFICAL TEARS SOL 15 ML OU SCH ×3 (06:22→18:51)
[2022-09-02] MEDS: ALBUTEROL 0.083% 2.5 MG/3 ML INH IH PRN (06:42)
[2022-09-02 08:00] VITALS: BP 124/82
[2022-09-02] MEDS: EPOETIN ALFA-EPBX (NON-ESRD) 10,000 UNIT/ML VIAL SQ SCH (08:51)
[2022-09-02] MEDS: LACTULOSE 20 GM/30 ML UDCUP PO SCH ×2 (08:51→20:33)
[2022-09-02] MEDS: MEROPENEM 1 GM VIAL IVPB SCH ×2 (08:51→20:33)
[2022-09-02] MEDS: FERROUS SULFATE 300 MG/5 ML LIQ UDCUP PO SCH (08:51)
[2022-09-02] MEDS: PANTOPRAZOLE 40 MG/VIAL IVP SCH ×2 (08:51→20:33)
[2022-09-02] MEDS: 0.9%NACL 10ML VIAL IV SCH ×2 (09:06→20:37)
[2022-09-02 12:00] VITALS: BP 110/69
[2022-09-02 12:33] LABS: CREATININE 0.9 mg/dL (0.5-1.5); POTASSIUM 3.1 mmol/L (3.5-5.1)
[2022-09-02 16:00] VITALS: BP 111/72
[2022-09-02 20:00] VITALS: BP 97/57
[2022-09-02 23:43] VITALS: BP 107/70
[2022-09-03] MEDS: ARTIFICAL TEARS SOL 15 ML OU SCH ×4 (00:30→18:39)
[2022-09-03 03:32] VITALS: BP 101/67
[2022-09-03 05:05] LABS: BASOPHILS % (AUTO) 0.2 % (0.0-5.0); EOSINOPHILS % (AUTO) 0.2 % (0.0-8.0); HEMATOCRIT 31.1 % (36-48); LYMPHOCYTES % (AUTO) 18.6 % (21.0-51.0); MEAN CORPUSCULAR HEMOGLOBIN 35.3 pg (27.0-33.0); MEAN CORPUSCULAR HGB CONC 32.8 g/dL (32.0-36.0); MEAN CORPUSCULAR VOLUME 107.6 fL (79-99); MONOCYTES % (AUTO) 11.4 % (3.0-13.0); NEUTROPHILS % (AUTO) 68.7 % (40.0-77.0); NUCLEATED RED BLOOD CELLS 0.5 % (0.0-0.19); PLATELET COUNT (AUTO) 48 K/uL (130-400); RED BLOOD CELL COUNT(AUTO) 2.89 MIL/uL (4.00-5.50); WHITE BLOOD COUNT (AUTO) 4.3 K/uL (4.8-10.8)
[2022-09-03 05:15] LABS: CREATININE 0.5 mg/dL (0.5-1.5); POTASSIUM 4.6 mmol/L (3.5-5.1)
[2022-09-03] MEDS: INSULIN HUMULIN R 100 UNIT/ML 3ML SQ SCH ×4 (06:00→18:00)
[2022-09-03] MEDS: FUROSEMIDE 20MG VIAL IV SCH ×2 (06:06→18:30)
[2022-09-03] MEDS: METRONIDAZOLE 500MG/100ML BAG 100 ML IVPB SCH ×2 (06:06→18:30)
[2022-09-03] MEDS: CHLORDIAZEPOXIDE HCL 25 MG CAP PO SCH ×4 (06:06→18:30)
[2022-09-03] MEDS: IPRATROPIUM 0.5 MG/2.5 ML INH IH SCH ×4 (06:38→23:38)
[2022-09-03 08:00] VITALS: BP 112/72
[2022-09-03] MEDS: MEROPENEM 1 GM VIAL IVPB SCH ×2 (08:40→20:47)
[2022-09-03] MEDS: FOLIC ACID 1 MG TABLET PO SCH (08:40)
[2022-09-03] MEDS: FERROUS SULFATE 300 MG/5 ML LIQ UDCUP PO SCH (08:40)
[2022-09-03] MEDS: LACTULOSE 20 GM/30 ML UDCUP PO SCH ×2 (08:40→20:53)
[2022-09-03] MEDS: PANTOPRAZOLE 40 MG/VIAL IVP SCH ×2 (08:40→20:50)
[2022-09-03] MEDS: EPOETIN ALFA-EPBX (NON-ESRD) 10,000 UNIT/ML VIAL SQ SCH (08:41)
[2022-09-03] MEDS: 0.9%NACL 10ML VIAL IV SCH ×2 (08:52→20:53)
[2022-09-03] MEDS: THIAMINE HCL 100 MG TABLET PO SCH (08:53)
[2022-09-03 11:53] VITALS: BP 102/66
[2022-09-03 16:00] VITALS: BP 105/52
[2022-09-03 20:00] VITALS: BP 107/66
[2022-09-04] VITALS (7 sets, daily range): BP systolic 100–127; BP diastolic 63–69
[2022-09-04] MEDS: FUROSEMIDE 20MG VIAL IV SCH ×2 (00:23→06:39)
[2022-09-04] MEDS: METRONIDAZOLE 500MG/100ML BAG 100 ML IVPB SCH ×3 (00:26→14:50)
[2022-09-04] MEDS: ARTIFICAL TEARS SOL 15 ML OU SCH ×3 (00:45→11:09)
[2022-09-04] MEDS: INSULIN HUMULIN R 100 UNIT/ML 3ML SQ SCH ×5 (06:00→21:00)
[2022-09-04] MEDS: ALBUTEROL 0.083% 2.5 MG/3 ML INH IH PRN (06:15)
[2022-09-04] MEDS: IPRATROPIUM 0.5 MG/2.5 ML INH IH SCH ×2 (06:16→10:58)
[2022-09-04] MEDS: CHLORDIAZEPOXIDE HCL 25 MG CAP PO SCH ×4 (06:43→21:24)
[2022-09-04] MEDS: EPOETIN ALFA-EPBX (NON-ESRD) 10,000 UNIT/ML VIAL SQ SCH ×2 (09:00→17:58)
[2022-09-04] MEDS: FERROUS SULFATE 300 MG/5 ML LIQ UDCUP PO SCH (10:59)
[2022-09-04] MEDS: LACTULOSE 20 GM/30 ML UDCUP PO SCH ×2 (10:59→21:24)
[2022-09-04] MEDS: THIAMINE HCL 100 MG TABLET PO SCH (10:59)
[2022-09-04] MEDS: PANTOPRAZOLE 40 MG/VIAL IVP SCH (11:00)
[2022-09-04] MEDS: MEROPENEM 1 GM VIAL IVPB SCH ×2 (11:00→21:23)
[2022-09-04] MEDS: FOLIC ACID 1 MG TABLET PO SCH (11:00)
[2022-09-04] MEDS: 0.9%NACL 10ML VIAL IV SCH (11:07)
[2022-09-04] MEDS ORDERED: IPRATROPIUM 0.5 MG/2.5 ML INH IH PRN (14:30)
[2022-09-04] MEDS ORDERED: ARTIFICAL TEARS SOL 15 ML OU PRN (14:30)
[2022-09-04] MEDS: PANTOPRAZOLE 40 MG TAB DR PO SCH (21:24)
[2022-09-05] MEDS: METRONIDAZOLE 500MG/100ML BAG 100 ML IVPB SCH ×3 (00:41→21:29)
[2022-09-05 04:00] VITALS: BP 111/69
[2022-09-05] MEDS: INSULIN HUMULIN R 100 UNIT/ML 3ML SQ SCH (06:15)
[2022-09-05 08:00] VITALS: BP 109/64
[2022-09-05] MEDS: LACTULOSE 20 GM/30 ML UDCUP PO SCH ×2 (09:00→20:54)
[2022-09-05] MEDS: PANTOPRAZOLE 40 MG TAB DR PO SCH ×2 (09:07→20:54)
[2022-09-05] MEDS: THIAMINE HCL 100 MG TABLET PO SCH (09:07)
[2022-09-05] MEDS: MEROPENEM 1 GM VIAL IVPB SCH ×2 (09:07→20:53)
[2022-09-05] MEDS: FOLIC ACID 1 MG TABLET PO SCH (09:07)
[2022-09-05] MEDS: CHLORDIAZEPOXIDE HCL 25 MG CAP PO SCH ×2 (09:07→20:54)
[2022-09-05] MEDS: FERROUS SULFATE 300 MG/5 ML LIQ UDCUP PO SCH (09:10)
[2022-09-05] MEDS: EPOETIN ALFA-EPBX (NON-ESRD) 10,000 UNIT/ML VIAL SQ SCH (09:11)
[2022-09-05 12:00] VITALS: BP 101/64
[2022-09-05 16:00] VITALS: BP 93/49
[2022-09-05 19:57] VITALS: BP 82/51
[2022-09-06] VITALS (7 sets, daily range): BP systolic 91–117; BP diastolic 49–79
[2022-09-06] MEDS: FERROUS SULFATE 300 MG/5 ML LIQ UDCUP PO SCH (08:21)
[2022-09-06] MEDS: THIAMINE HCL 100 MG TABLET PO SCH (08:21)
[2022-09-06] MEDS: MEROPENEM 1 GM VIAL IVPB SCH ×2 (08:21→20:27)
[2022-09-06] MEDS: PANTOPRAZOLE 40 MG TAB DR PO SCH ×2 (08:21→20:27)
[2022-09-06] MEDS: FOLIC ACID 1 MG TABLET PO SCH (08:21)
[2022-09-06] MEDS: LACTULOSE 20 GM/30 ML UDCUP PO SCH ×2 (08:21→20:27)
[2022-09-06] MEDS: EPOETIN ALFA-EPBX (NON-ESRD) 10,000 UNIT/ML VIAL SQ SCH (08:22)
[2022-09-06] MEDS: CHLORDIAZEPOXIDE HCL 25 MG CAP PO SCH ×3 (08:23→20:27)
[2022-09-06] MEDS: 0.9%NACL 10ML VIAL IV SCH (08:30)
[2022-09-06] MEDS: METRONIDAZOLE 500MG/100ML BAG 100 ML IVPB SCH ×2 (13:12→22:34)
[2022-09-07 03:26] VITALS: BP 106/62
[2022-09-07] MEDS: METRONIDAZOLE 500MG/100ML BAG 100 ML IVPB SCH (06:12)
[2022-09-07 07:50] VITALS: BP 97/68
[2022-09-07] MEDS: THIAMINE HCL 100 MG TABLET PO SCH (08:29)
[2022-09-07] MEDS: LACTULOSE 20 GM/30 ML UDCUP PO SCH (08:30)
[2022-09-07] MEDS: FOLIC ACID 1 MG TABLET PO SCH (08:30)
[2022-09-07] MEDS: CHLORDIAZEPOXIDE HCL 25 MG CAP PO SCH (08:30)
[2022-09-07] MEDS: PANTOPRAZOLE 40 MG TAB DR PO SCH (08:30)
[2022-09-07] MEDS: EPOETIN ALFA-EPBX (NON-ESRD) 10,000 UNIT/ML VIAL SQ SCH (08:30)
[2022-09-07] MEDS: FERROUS SULFATE 300 MG/5 ML LIQ UDCUP PO SCH (08:30)
[2022-09-07] MEDS: 0.9%NACL 10ML VIAL IV SCH (08:40)
[2022-09-07 11:29] VITALS: BP 124/77
== END 2022-09-07 16:55 | DRG 870 ==
LOC: EDH 15:49 → EDHIP 20:24 → 2CH 22:26 → 4CH 09-01 14:40
PROVIDERS: ADMIT Internal Medicine Critical Care Medicine; ATTEND Internal Medicine Critical Care Medicine
PROC: 5A1955Z Respiratory Ventilation, Greater than 96 Consecutive Hours (ICD-10-PCS; principal; 2022-08-23)
PROC: 0BH17EZ Insertion of Endotracheal Airway into Trachea, Via Natural or Artificial Opening (ICD-10-PCS; 2022-08-23)
PROC: 30233N1 Transfusion of Nonautologous Red Blood Cells into Peripheral Vein, Percutaneous Approach (ICD-10-PCS; 2022-08-23)
PROC: 06L38CZ Occlusion of Esophageal Vein with Extraluminal Device, Via Natural or Artificial Opening Endoscopic (ICD-10-PCS; 2022-08-24)
PROC: 02HV33Z Insertion of Infusion Device into Superior Vena Cava, Percutaneous Approach (ICD-10-PCS; 2022-08-24)
PROC: 0W993ZZ Drainage of Right Pleural Cavity, Percutaneous Approach (ICD-10-PCS; 2022-08-27)
PROC: 5A09357 Assistance with Respiratory Ventilation, Less than 24 Consecutive Hours, Continuous Positive Airway Pressure (ICD-10-PCS; 2022-08-28)
PROC: 5A0935A Assistance with Respiratory Ventilation, Less than 24 Consecutive Hours, High Flow/Velocity Cannula (ICD-10-PCS; 2022-08-28)
PROC: 5A09357 Assistance with Respiratory Ventilation, Less than 24 Consecutive Hours, Continuous Positive Airway Pressure (ICD-10-PCS; 2022-08-29)
PROC: 5A0935A Assistance with Respiratory Ventilation, Less than 24 Consecutive Hours, High Flow/Velocity Cannula (ICD-10-PCS; 2022-08-29)
DX: A41.9 Sepsis, unspecified organism (principal); J69.0 Pneumonitis due to inhalation of food and vomit; E43 Unspecified severe protein-calorie malnutrition; I85.11 Secondary esophageal varices with bleeding; R57.8 Other shock; R57.1 Hypovolemic shock; J96.01 Acute respiratory failure with hypoxia; I50.33 Acute on chronic diastolic (congestive) heart failure; G93.41 Metabolic encephalopathy; K29.01 Acute gastritis with bleeding; J10.08 Influenza due to other identified influenza virus with other specified pneumonia; D62 Acute posthemorrhagic anemia; E87.1 Hypo-osmolality and hyponatremia; D68.9 Coagulation defect, unspecified; K76.6 Portal hypertension; G72.81 Critical illness myopathy; K22.10 Ulcer of esophagus without bleeding; R65.11 Systemic inflammatory response syndrome (SIRS) of non-infectious origin with acute organ dysfunction; Z20.822 Contact with and (suspected) exposure to COVID-19; K21.00 Gastro-esophageal reflux disease with esophagitis, without bleeding; K74.60 Unspecified cirrhosis of liver; F10.229 Alcohol dependence with intoxication, unspecified; W18.39XA Other fall on same level, initial encounter; E87.6 Hypokalemia; E88.09 Other disorders of plasma-protein metabolism, not elsewhere classified; K52.9 Noninfective gastroenteritis and colitis, unspecified; K76.82 Hepatic encephalopathy; D69.6 Thrombocytopenia, unspecified; E78.00 Pure hypercholesterolemia, unspecified; I11.0 Hypertensive heart disease with heart failure; K31.89 Other diseases of stomach and duodenum; K43.9 Ventral hernia without obstruction or gangrene; Z74.01 Bed confinement status; Z91.199 Patient's noncompliance with other medical treatment and regimen due to unspecified reason; Y93.89 Activity, other specified; Y92.89 Other specified places as the place of occurrence of the external cause; Y99.8 Other external cause status; Z68.27 Body mass index [BMI] 27.0-27.9, adult
CPT/HCPCS: 31500; 36415; 36600; 43244; 71045; 72100; 72220; 74177; 80048; 80053; 80069; 80076; 80202; 80305; 81001; 82140; 82270; 82435; 82803; 82945; 82947; 82948; 83605; 83615; 83735; 84100; 84132; 84145; 84157; 84295; 85007; 85014; 85018; 85025; 85027; 85384; 85610; 85730; 86850; 86900; 86901; 86923; 87040; 87071; 87205; 87635; 87804; 89051; 93005; 93306; 94002; 94003; 94640; 94664; 97039; 99291; 99292; C1751; C1894; C9113; G0378; J0610; J0696; J1364; J1756; J1815; J1940; J2060; J2185; J2354; J2405; J2543; J2597; J2704; J3010; J3370; J3411; J3430; J3475; J3480; J3486; J3490; J7030; J7050; J7070; J7608; P9016; P9046; Q9967

== ENCOUNTER 2022-11-22 18:40 | Emergency (ER) | payer OTHER ==
[~2022-11-22] VITALS: Ht 162.6 cm; Wt 54.4 kg
[2022-11-22 18:46] VITALS: BP 160/97; PULSE 98; RESP 18; O2SAT 98
[2022-11-22 20:37] LABS: BASOPHILS % (AUTO) 0.7 % (0.0-5.0); HEMATOCRIT 30.8 % (36-48); LYMPHOCYTES % (AUTO) 22.4 % (21.0-51.0); MEAN CORPUSCULAR HEMOGLOBIN 33.8 pg (27.0-33.0); MEAN CORPUSCULAR VOLUME 91.4 fL (79-99); MONOCYTES % (AUTO) 4.3 % (3.0-13.0); NEUTROPHILS % (AUTO) 72.2 % (40.0-77.0); PLATELET COUNT (AUTO) 72 K/uL (130-400); RED BLOOD CELL COUNT(AUTO) 3.37 MIL/uL (4.00-5.50); RED CELL DISTRIBUTION WIDTH 13.2 % (11.0-15.5); WHITE BLOOD COUNT (AUTO) 8.5 K/uL (4.8-10.8)
[2022-11-22 20:46] LABS: CREATININE 0.5 mg/dL (0.5-1.5); POTASSIUM 3.5 mmol/L (3.5-5.1)
[2022-11-22 20:53] LABS: ALBUMIN 3.7 g/dL (3.5-5.0); TOTAL PROTEIN, SERUM 8.3 g/dL (6.0-8.3)
[2022-11-22 21:20] LABS: PLATELET MORPHOLOGY DECREASED
== END 2022-11-22 21:13 | disposition home or self-care (01) ==
LOC: EDH 18:40
DX: F10.229 Alcohol dependence with intoxication, unspecified (principal); R10.30 Lower abdominal pain, unspecified; M79.602 Pain in left arm; I10 Essential (primary) hypertension; E78.00 Pure hypercholesterolemia, unspecified; Y90.8 Blood alcohol level of 240 mg/100 ml or more
CPT/HCPCS: 36415; 80053; 85025; 93971

== ENCOUNTER 2022-12-08 15:16 | Inpatient (IN) | payer OTHER ==
[~2022-12-08] VITALS: Ht 165.1 cm; Wt 58.6 kg
[2022-12-08] VITALS (24 sets, daily range): BP systolic 91–149; BP diastolic 40–83; PULSE 96–132; RESP 16–34; O2SAT 97
[2022-12-08] MEDS ORDERED: OCTREOTIDE ACETATE 100 MCG/ML AMP IVP ONE (16:00)
[2022-12-08] MEDS ORDERED: CEFTRIAXONE 1G VIAL IVPB ONE (16:00)
[2022-12-08] MEDS ORDERED: PANTOPRAZOLE 40 MG/VIAL IVP ONE (16:00)
[2022-12-08] MEDS ORDERED: LACTATED RINGERS 1000ML 1,000 ML IV ONE (16:00)
[2022-12-08] MEDS ORDERED: OCTREOTIDE ACETATE 1,000 MCG in DEXTROSE 5%-WATER 195 ML IV ONE (16:00)
[2022-12-08] MEDS ORDERED: ONDANSETRON 4MG INJ IVP ONE (16:00)
[2022-12-08] MEDS ORDERED: CEFTRIAXONE 1G VIAL 1 GM in 0.9%NACL 50ML 50 ML IV ONE (16:00)
[2022-12-08] MEDS: PANTOPRAZOLE 40MG INJ 80 MG in 0.9%NACL 100ML 100 ML IV SCH (16:46)
[2022-12-08] MEDS ORDERED: 0.9%NACL 50ML IV SCH (17:00)
[2022-12-08] MEDS ORDERED: NOREPINEPHRIN 4MG/NS 250ML 250 ML IV PRN (17:00)
[2022-12-08] MEDS ORDERED: ACETAMINOPHEN 650 MG SUPPOSITORY RC PRN (17:00)
[2022-12-08] MEDS ORDERED: ACETAMINOPHEN 325 MG TAB PO PRN (17:00)
[2022-12-08 17:09] LABS: BASOPHILS # (AUTO) 0.08 K/uL (0.00-0.20); BASOPHILS % (AUTO) 0.9 % (0.0-5.0); EOSINOPHILS # (AUTO) 0.01 K/uL (0.00-0.70); EOSINOPHILS % (AUTO) 0.1 % (0.0-8.0); IMMATURE GRANULOCYTE ABSOLUTE 0.21 K/uL (0-1); LYMPHOCYTES # (AUTO) 1.8 K/uL (1.0-4.8); LYMPHOCYTES % (AUTO) 21.7 % (21.0-51.0); MEAN CORPUSCULAR HEMOGLOBIN 35.1 pg (27.0-33.0); MEAN CORPUSCULAR HGB CONC 34.5 g/dL (32.0-36.0); MEAN CORPUSCULAR VOLUME 101.6 fL (79-99); MONOCYTES # (AUTO) 0.8 K/uL (0.1-1.0); MONOCYTES % (AUTO) 9.7 % (3.0-13.0); NEUTROPHILS # (AUTO) 5.5 K/uL (1.8-7.7); NEUTROPHILS % (AUTO) 65.1 % (40.0-77.0); PLATELET COUNT (AUTO) 106 K/uL (130-400); RED BLOOD CELL COUNT(AUTO) 1.91 MIL/uL (4.00-5.50); WHITE BLOOD COUNT (AUTO) 8.4 K/uL (4.8-10.8)
[2022-12-08 17:14] LABS: HEMATOCRIT 19.4 % (36-48)
[2022-12-08] MEDS: 0.9%NACL 1000ML 1,000 ML IV SCH (17:16)
[2022-12-08] MEDS: ZOSYN 3.375GM +NS 50ML IVPB SCH (17:16)
[2022-12-08 17:18] LABS: CREATININE 0.7 mg/dL (0.5-1.5)
[2022-12-08 17:20] LABS: INR 1.21 (0.85-1.15); PROTHROMBIN TIME 13.9 SEC (9.6-11.6)
[2022-12-08 17:22] LABS: ALBUMIN 2.4 g/dL (3.5-5.0); BILIRUBIN,TOTAL 1.9 mg/dL (0.2-1.0); TOTAL PROTEIN, SERUM 5.7 g/dL (6.0-8.3)
[2022-12-08] MEDS ORDERED: ONDANSETRON 4MG INJ ONE (20:28)
[2022-12-08] MEDS ORDERED: ONDANSETRON 4MG INJ IVP PRN (20:30)
[2022-12-08] MEDS ORDERED: PHENYLEPHRINE HCL 10 MG in 0.9% NACL 250ML 250 ML IV PRN (21:00)
[2022-12-08] MEDS ORDERED: PROMETHAZINE HCL 25 MG/ML 1ML AMPULE IM PRN (22:45)
[2022-12-09] VITALS (47 sets, daily range): BP systolic 105–150; BP diastolic 64–111; PULSE 73–115; RESP 14–23; O2SAT 97–98
[2022-12-09] MEDS: ZOSYN 3.375GM +NS 50ML IVPB SCH ×3 (02:00→16:50)
[2022-12-09] MEDS: 0.9%NACL 1000ML 1,000 ML IV SCH ×3 (02:00→11:53)
[2022-12-09] MEDS: PANTOPRAZOLE 40MG INJ 80 MG in 0.9%NACL 100ML 100 ML IV SCH ×2 (02:08→09:41)
[2022-12-09 06:59] LABS: HEMATOCRIT 26.1 % (36-48)
[2022-12-09] MEDS ORDERED: SPIR25TA6 PO (11:38)
[2022-12-09] MEDS ORDERED: COMPOUND IV REFRIGERATED 1 EACH IVSOLN MISC PRN (12:00)
[2022-12-09] MEDS ORDERED: PROPOFOL 10 MG/ML 20ML VIAL IV ONE (12:14)
[2022-12-09] MEDS ORDERED: LIDOCAINE PF 100MG/5ML (2%) SYRINGE 5ML ONE (12:14)
[2022-12-09] MEDS ORDERED: MEPERIDINE-PF 25 MG/ML SYG ONE ×2 (13:31→23:36)
[2022-12-09] MEDS ORDERED: ONDANSETRON 4MG INJ ONE (13:32)
[2022-12-09 14:40] LABS: HEMATOCRIT 26.4 % (36-48)
[2022-12-09] MEDS ORDERED: PANTOPRAZOLE 40 MG TAB DR PO SCH (15:00)
[2022-12-09] MEDS: OCTREOTIDE ACETATE 1,250 MCG in 0.9% NACL 250ML 250 ML IV SCH (15:19)
[2022-12-09] MEDS ORDERED: LIDOCAINE HCL 2% VISCOUS 15 ML UDCUP PO PRN (18:00)
[2022-12-09] MEDS ORDERED: PANTOPRAZOLE 40 MG/VIAL IVP ONE (23:30)
[2022-12-09] MEDS ORDERED: MEPERIDINE-PF 25 MG/ML SYG IM ONE (23:30)
[2022-12-09] MEDS ORDERED: PANTOPRAZOLE 40 MG/VIAL ONE (23:35)
[2022-12-10] VITALS (26 sets, daily range): BP systolic 111–173; BP diastolic 67–97; PULSE 60–94; RESP 15–23; O2SAT 98–100
[2022-12-10] MEDS: 0.9%NACL 1000ML 1,000 ML IV SCH ×2 (01:00→08:05)
[2022-12-10] MEDS: ZOSYN 3.375GM +NS 50ML IVPB SCH ×3 (02:12→16:59)
[2022-12-10 04:07] LABS: BASOPHILS # (AUTO) 0.05 K/uL (0.00-0.20); BASOPHILS % (AUTO) 1.5 % (0.0-5.0); EOSINOPHILS # (AUTO) 0.07 K/uL (0.00-0.70); EOSINOPHILS % (AUTO) 2.1 % (0.0-8.0); HEMATOCRIT 24.1 % (36-48); IMMATURE GRANULOCYTE ABSOLUTE 0.04 K/uL (0-1); LYMPHOCYTES # (AUTO) 0.7 K/uL (1.0-4.8); LYMPHOCYTES % (AUTO) 21.5 % (21.0-51.0); MEAN CORPUSCULAR HGB CONC 35.3 g/dL (32.0-36.0); MEAN CORPUSCULAR VOLUME 90.6 fL (79-99); MONOCYTES # (AUTO) 0.4 K/uL (0.1-1.0); MONOCYTES % (AUTO) 10.7 % (3.0-13.0); NEUTROPHILS # (AUTO) 2.1 K/uL (1.8-7.7); PLATELET COUNT (AUTO) 57 K/uL (130-400); RED BLOOD CELL COUNT(AUTO) 2.66 MIL/uL (4.00-5.50); RED CELL DISTRIBUTION WIDTH 21.4 % (11.0-15.5); WHITE BLOOD COUNT (AUTO) 3.4 K/uL (4.8-10.8)
[2022-12-10 04:10] LABS: CREATININE 0.6 mg/dL (0.5-1.5)
[2022-12-10 04:16] LABS: POTASSIUM 2.9 mmol/L (3.5-5.1)
[2022-12-10 04:40] LABS: PLATELET MORPHOLOGY COMMENT DECREASED
[2022-12-10] MEDS: POTASSIUM CHLORIDE 10MEQ/100ML 100 ML IV PRN ×2 (05:10→11:24)
[2022-12-10] MEDS: MAGNESIUM 2GM PREMIX 50ML 50 ML IV PRN ×2 (05:33→15:22)
[2022-12-10] MEDS ORDERED: PANTOPRAZOLE 40 MG/VIAL ONE (07:28)
[2022-12-10] MEDS: PANTOPRAZOLE 40 MG/VIAL IVP SCH ×2 (07:30→20:23)
[2022-12-10] MEDS ORDERED: PANTOPRAZOLE 40 MG TAB DR PO SCH (09:00)
[2022-12-10] MEDS: OCTREOTIDE ACETATE 1,250 MCG in 0.9% NACL 250ML 250 ML IV SCH (14:32)
[2022-12-10 15:12] LABS: MAGNESIUM 1.9 mg/dL (1.80-2.40); POTASSIUM 3.4 mmol/L (3.5-5.1)
[2022-12-10] MEDS: POTASSIUM CHLORIDE 10% ELIXIR 20 MEQ/15 ML UDCUP PO PRN (16:59)
[2022-12-11] MEDS: ZOSYN 3.375GM +NS 50ML IVPB SCH ×3 (00:45→16:15)
[2022-12-11 03:18] VITALS: BP 114/66; PULSE 62; RESP 16
[2022-12-11 04:56] LABS: BASOPHILS # (AUTO) 0.04 K/uL (0.00-0.20); EOSINOPHILS # (AUTO) 0.07 K/uL (0.00-0.70); EOSINOPHILS % (AUTO) 1.7 % (0.0-8.0); IMMATURE GRANULOCYTE ABSOLUTE 0.04 K/uL (0-1); LYMPHOCYTES # (AUTO) 0.9 K/uL (1.0-4.8); LYMPHOCYTES % (AUTO) 21.6 % (21.0-51.0); MEAN CORPUSCULAR HEMOGLOBIN 31.8 pg (27.0-33.0); MEAN CORPUSCULAR HGB CONC 34.4 g/dL (32.0-36.0); MEAN CORPUSCULAR VOLUME 92.5 fL (79-99); MONOCYTES # (AUTO) 0.3 K/uL (0.1-1.0); MONOCYTES % (AUTO) 7.7 % (3.0-13.0); NEUTROPHILS # (AUTO) 2.7 K/uL (1.8-7.7); PLATELET COUNT (AUTO) 75 K/uL (130-400); RED BLOOD CELL COUNT(AUTO) 2.92 MIL/uL (4.00-5.50); RED CELL DISTRIBUTION WIDTH 21.3 % (11.0-15.5)
[2022-12-11 05:05] LABS: CREATININE 0.6 mg/dL (0.5-1.5); POTASSIUM 3.6 mmol/L (3.5-5.1)
[2022-12-11 08:00] VITALS: BP 128/73; PULSE 60; RESP 18; O2SAT 100
[2022-12-11] MEDS: POTASSIUM CHLORIDE 10% ELIXIR 20 MEQ/15 ML UDCUP PO PRN ×2 (08:02→11:27)
[2022-12-11] MEDS: PANTOPRAZOLE 40 MG/VIAL IVP SCH ×2 (08:02→20:26)
[2022-12-11 11:37] VITALS: BP 109/74; PULSE 74; RESP 17
[2022-12-11 16:00] VITALS: BP 135/74; PULSE 72; RESP 18
[2022-12-11] MEDS: OCTREOTIDE ACETATE 1,250 MCG in 0.9% NACL 250ML 250 ML IV SCH (16:16)
[2022-12-11 19:05] VITALS: BP 118/74; PULSE 85; RESP 22
[2022-12-11 20:10] VITALS: O2SAT 100
[2022-12-12 00:05] VITALS: BP 120/77; PULSE 85; RESP 20
[2022-12-12] MEDS: ZOSYN 3.375GM +NS 50ML IVPB SCH ×2 (00:42→08:53)
[2022-12-12 03:05] VITALS: BP 124/62; PULSE 65; RESP 20
[2022-12-12 07:57] VITALS: O2SAT 100
[2022-12-12 08:00] VITALS: BP 124/53; PULSE 65; RESP 18
[2022-12-12] MEDS: PANTOPRAZOLE 40 MG/VIAL IVP SCH (08:53)
[2022-12-12 12:00] VITALS: BP 116/71; PULSE 85; RESP 18
[2022-12-12] MEDS ORDERED: PANT40TA55 PO (12:12)
[2022-12-12] MEDS ORDERED: FERS325 PO (12:13)
== END 2022-12-12 12:55 | disposition home or self-care (01) | DRG 432 ==
LOC: EDH 15:16 → EDHIP 16:33 → 2BH 19:45 → 2DH 12-10 14:52
PROVIDERS: ADMIT Internal Medicine; ATTEND Internal Medicine
PROC: 30233N1 Transfusion of Nonautologous Red Blood Cells into Peripheral Vein, Percutaneous Approach (ICD-10-PCS; 2022-12-08)
PROC: 06L38CZ Occlusion of Esophageal Vein with Extraluminal Device, Via Natural or Artificial Opening Endoscopic (ICD-10-PCS; principal; 2022-12-09)
DX: K74.60 Unspecified cirrhosis of liver (principal); R57.8 Other shock; K92.2 Gastrointestinal hemorrhage, unspecified; I85.10 Secondary esophageal varices without bleeding; K92.0 Hematemesis; I10 Essential (primary) hypertension; D64.9 Anemia, unspecified; E78.5 Hyperlipidemia, unspecified; F10.10 Alcohol abuse, uncomplicated
CPT/HCPCS: 36415; 43244; 80048; 80053; 82270; 82948; 83735; 84132; 85014; 85018; 85025; 85610; 86850; 86900; 86901; 86923; 93005; 99291; A4606; C9113; G0378; J0696; J2001; J2175; J2354; J2405; J2543; J2550; J2704; J3475; J3480; J3490; J7030; J7050; J7060; J7120; P9016; A4215; A4216; A4222; A4223; A4620; A4657; A7002